=== PATIENT | male | born 1990 | race Caucasian/White ===

== ENCOUNTER 2019-03-31 11:27 | Emergency (ER) | payer MEDICAID ==
[2019-03-31] MEDS ORDERED: ONDANSETRON 4 MG/2 ML VIAL ONE (11:51)
[2019-03-31] MEDS ORDERED: ONDANSETRON 4 MG/2 ML VIAL IVP ONE (11:53)
--- NOTE | 2019-03-31 11:54 | EDPHY ---
H & P Time Seen by Provider: 03/31/19 11:52 HPI/ROS: Chief complaint. Seizure HPI. 20-year-old male with history of seizure disorder. Here by EMS after having seizure in the supermarket. Previous head injury causing seizure disorder. Today he had decreased oral intake. He did not take his anticonvulsants today. He thought he might be having low blood sugar so he went to the supermarket where he had a seizure. His last seizure was months ago. He has a scalp laceration. He did not bite his tongue. Slight nausea. He believes he takes Tegretol 300 mg XR twice daily ROS 10 systems were reviewed and negative with the exception of the elements mentioned in the history of present illness Past Medical/Surgical History: Seizure disorder Social History: Single, daily smoker, no alcohol Smoking Status: Current every day smoker Physical Exam: General Appearance: Alert well-developed male moderate distress vital signs significant for initial heart rate 121 Eyes: Pupils equal and round no pallor or injection. ENT, no hemotympanum or Perez sign. Large scalp hematoma to the right parietal scalp. 2 cm laceration over the hematoma Respiratory: There are no retractions, lungs are clear to auscultation. Cardiovascular: Regular rate and rhythm. Gastrointestinal: Abdomen is soft and nontender, no masses, bowel sounds normal. Neurological: Awake and alert, sensory and motor exams grossly normal. Skin: Warm and dry, no rashes. Musculoskeletal: Neck is supple nontender. Extremities symmetrical, full range of motion. Psychiatric: Patient is oriented X 3, there is no agitation. Constitutional: Initial Vital Signs Heart Rate 121 H 03/31/19 11:29 Respiratory Rate 16 03/31/19 11:29 Blood Pressure 124/74 H 03/31/19 11:29 O2 Sat (%) 97 03/31/19 11:29 O2 Delivery Mode Room Air Allergies/Adverse Reactions: No Known Allergies Allergy (Unverified 03/31/19 11:33) Home Medications: Medication Instructions Recorded Carbamazepine ER 03/31/19 Medical Decision Making - Diagnostics Imaging Results: Imaging Impressions Cervical Spine CT 03/31/19 12:09 Impression: No acute posttraumatic abnormality identified. If there is persistent pain or neurologic deficit, consider MRI and/or flexion and extension views if clinically indicated. Findings discussed with Michael Prasad on 03/31/2019 at 13:15. Head CT 03/31/19 12:09 Impression: No acute intracranial findings. Findings discussed with MICHAEL PRASAD 03/31/2019 at 13:15. CT head and cervical spine reviewed by me and discussed with Dr. Acosta are normal Procedures: Procedure: Laceration repair. Verbal consent was obtained from the patient. The 2 cm laceration on the right parietal scalp was anesthetized in the usual fashion. The wound was irrigated, draped and explored to its base with a gloved finger. There were no deep structures involved. No tendon injury was identified. The wound was repaired with three 4-0 prolene suture. The wound repair was simple. The procedure was performed by myself. Tegretol orally ED Course/Re-evaluation: Re-evaluation at 1:35 p.m.. Patient is stable. Patient and I discussed laboratory and imaging study results. We discussed treatment plan including criteria for return importance of follow-up and further evaluation. He expresses understanding and agreement He is alert and oriented and interactive however vomiting. IV Phenergan Patient spoke to his neurologist by phone from the emergency department and he will see his neurologist tomorrow Differential Diagnosis: Seizure in a man with known seizure disorder. Likely due to inadequate anticonvulsant medication. I considered skull fracture, intracranial bleeding, cervical spine injury - Data Points Laboratory Results: Laboratory Results 03/31/19 11:40 03/31/19 11:40 03/31/19 03/31/19 11:40 11:40 WBC 10.78 10^3/uL H 10^3/uL (3.80-9.50) RBC 5.42 10^6/uL 10^6/uL (4.40-6.38) Hgb 17.6 g/dL H g/dL (13.7-17.5) Hct 56.8 % H % (40.0-51.0) MCV 104.8 fL H fL (81.5-99.8) MCH 32.5 pg pg (27.9-34.1) MCHC 31.0 g/dL L g/dL (32.4-36.7) RDW 13.9 % % (11.5-15.2) Plt Count 413 10^3/uL H 10^3/uL (150-400) MPV 10.2 fL fL (8.7-11.7) Neut % (Auto) 45.2 % % (39.3-74.2) Lymph % (Auto) 46.8 % H % (15.0-45.0) [place] % (Auto) 5.3 % % (4.5-13.0) Eos % (Auto) 1.3 % % (0.6-7.6) Baso % (Auto) 1.0 % % (0.3-1.7) Nucleat RBC Rel Count 0.0 % % (0.0-0.2) Absolute Neuts (auto) 4.87 10^3/uL 10^3/uL (1.70-6.50) Absolute Lymphs (auto) 5.05 10^3/uL H 10^3/uL (1.00-3.00) Absolute Monos (auto) 0.57 10^3/uL 10^3/uL (0.30-0.80) Absolute Eos (auto) 0.14 10^3/uL 10^3/uL (0.03-0.40) Absolute Basos (auto) 0.11 10^3/uL H 10^3/uL (0.02-0.10) Absolute Nucleated RBC 0.00 10^3/uL 10^3/uL (0-0.01) Immature Gran % 0.4 % % (0.0-1.1) Immature Gran # 0.04 10^3/uL 10^3/uL (0.00-0.10) RBC/WBC/PLT Morphology TNP Platelet Estimate TNP Sodium 147 mEq/L H mEq/L (135-145) Potassium 4.0 mEq/L mEq/L (3.5-5.2) Chloride 103 mEq/L mEq/L (97-110) Carbon Dioxide 11 mEq/l L mEq/l (22-31) Anion Gap 33 mEq/L H mEq/L (6-14) BUN 9 mg/dL mg/dL (7-23) Creatinine 1.1 mg/dL mg/dL (0.7-1.3) Estimated GFR > 60 Glucose 91 mg/dL mg/dL (70-100) Calcium 10.6 mg/dL H mg/dL (8.5-10.4) Carbamazepine < 3.00 ug/mL L ug/mL (4.0-12.0) Medications Given: Carbamazepine (Tegretol Xr) 300 mg PO BID JOSE Stop: 09/27/19 12:14 Last Admin: 03/31/19 13:03 Dose: 300 mg Discontinued Medications Ondansetron HCl (Zofran) 4 mg IVP EDNOW ONE Stop: 03/31/19 11:54 Last Admin: 03/31/19 11:54 Dose: 4 mg Promethazine HCl (Phenergan) 12.5 mg IVP EDNOW ONE Stop: 03/31/19 13:42 Last Admin: 03/31/19 14:17 Dose: 12.5 mg Departure - Departure Disposition: Home, Routine, Self-Care Clinical Impression: Seizure disorder, Seizure Scalp laceration Qualifiers: Encounter type: initial encounter Qualified Code(s): S01.01XA - Laceration without foreign body of scalp, initial encounter Condition: Good Instructions: Recurrent Seizures in Adults (ED) Additional Instructions: Make sure you take your seizure medication as prescribed. Do not miss doses Regular eating and meals. Regular sleep No driving or other dangerous activity until seen by you're neurologist Keep your follow-up appointment tomorrow with neurologist Keep your cut clean and dry. You may shower with stitches in. Ice to sore spot on your head next 24 hr. Return for signs of infection Stitches out 1 week Referrals: Patient,NotPresent [Unknown] - As per Instructions
[2019-03-31 12:00] LABS: PLATELET COUNT 413 10^3/uL (150-400)
[2019-03-31] MEDS ORDERED: PROMETHAZINE HCL 25 MG/ML INJ IVP ONE (13:41)
[2019-03-31 14:20] VITALS: BP 107/67
== END 2019-03-31 14:40 | disposition home or self-care (01) ==
LOC: EDUNIT#
PROC: 0HQ0XZZ Repair Scalp Skin, External Approach (ICD-10-PCS; principal; 2019-03-31)
DX: G40.409 Other generalized epilepsy and epileptic syndromes, not intractable, without status epilepticus (principal); S01.01XA Laceration without foreign body of scalp, initial encounter; W01.198A Fall on same level from slipping, tripping and stumbling with subsequent striking against other object, initial encounter; Y92.512 Supermarket, store or market as the place of occurrence of the external cause; Z79.899 Other long term (current) drug therapy; F17.200 Nicotine dependence, unspecified, uncomplicated
CPT/HCPCS: 96374; J2405; J2550